=== PATIENT | female | born 1985 | race Caucasian/White ===

== ENCOUNTER 2017-02-13 20:07 | Inpatient (IN) | payer OTHER, MEDICAID ==
[~2017-02-13] VITALS: Ht 167.6 cm; Wt 58.8 kg
--- NOTE | 2017-02-13 20:34 | PD ---
HPI Chief Complaint: Psychiatric Symptoms Time Seen by Provider: 20:28 Travel History International Travel<30 days: No Contact w/Intl Traveler<30days: No Traveled to known affect area: No History of Present Illness HPI 31-year-old female is here as a transfer from [facility]. Patient was medically cleared by Dr. Weston and sent here to be evaluated by the psych screener and the psychiatrist. Patient allegedly had a nontoxic overdose. The patient has no new complaints other than being hungry. PFSH Past Medical History Medical History: Denies Significant Hx Tetanus Vaccination: < 5 Years ?: Not Past Surgical History Surgical History: No Previous Surgery Social History Alcohol Use: No Tobacco Use: No Substance Use: No Allergies-Medications (Allergen,Severity, Reaction): Coded Allergies: morphine (Verified Allergy, Intermediate, Nausea/Vomiting, 02/13/17) Reported Meds & Prescriptions Reported Meds & Active Scripts Active No Active Prescriptions or Reported Medications Review of Systems General / Constitutional: No: Fever Eyes: No: Visual changes HENT: No: Headaches Cardiovascular: No: Chest Pain or Discomfort Respiratory: No: Shortness of Breath Gastrointestinal: No: Abdominal Pain Genitourinary: No: Dysuria Musculoskeletal: No: Pain Skin: No Rash Neurologic: No: Weakness Psychiatric: Positive: Depression, Suicidal Ideations, No: Homicidal Ideation Endocrine: No: Polydipsia Hematologic/Lymphatic: No: Easy Bruising Physical Exam Narrative GENERAL: This is a well-nourished, well-developed patient, in no apparent distress. SKIN: No rashes, ecchymoses or lesions. Warm and dry. HEAD: Atraumatic. Normocephalic. EYES: PERRL, EOMI, no discharge or injection. No scleral icterus. EARS: Clear NOSE: Nasal turbinates appear normal. THROAT: Mucosa pink and moist. Airway patent. NECK: Trachea midline. supple, moves head freely. LUNGS: Clear to auscultation. CV: Regular in rhythm. ABDOMEN: Soft nontender. EXT: No clubbing cyanosis or edema. MDM Medical Decision Making Medical Screen Exam Complete: Yes Emergency Medical Condition: Yes Medical Record Reviewed: Yes Differential Diagnosis MDM: High Differential diagnoses: Schizophrenia, schizoaffective disorder, bipolar, anxiety, depression, adjustment reaction, mood disorder NOS, ODD, depressive disorder NOS, dementia, dementia with agitation, psychosis NOS, substance induced mood disorder, DMDD, Asperger syndrome, infection,electrolyte abnormality, malingering. Narrative Course Mental health screening discussed with the patient. Psychiatric screen ordered. The patient has been medically cleared earlier this afternoon by Dr. Weston. This is medical clearance for psychiatric admission Diagnosis Primary Impression: Medical clearance for psychiatric admission Scripts No Active Prescriptions or Reported Meds Condition: Stable Wes Owens Feb 13, 2017 20:34
[2017-02-13 23:27] VITALS: BP 93/50; PULSE 57; RESP 17; TEMP 98.8; O2SAT 99
[2017-02-14 03:39] VITALS: BP 97/60; PULSE 54; RESP 17; TEMP 98.6; O2SAT 98
[2017-02-14 09:41] VITALS: BP 136/58; PULSE 74; RESP 16; TEMP 98.3; O2SAT 100
[2017-02-14] MEDS ORDERED: LORazepam 2 MG/ML VIAL ONE (12:36)
[2017-02-14] MEDS ORDERED: diphenhydrAMINE HCL 50 MG/ML VIAL ONE (12:36)
--- NOTE | 2017-02-14 12:37 | PD ---
History of Present Illness Chief Complaint: Psychiatric Symptoms Time Seen by Provider: 12:00 Travel History International Travel<30 Days: No Contact w/Intl Traveler<30days: No Known affected area: No Legal Status Legal Status: Carlin Act Carlin Act Signed By: Janis Lombardo History of Present Illness: Patient under Carlin act for suicidal behavior. She is on the [facility] wait list. She is highly agitated at this point, attempted to pull the shower curtain down and strangle herself. Being given Geodon, Benadryl and Ativan intramuscularly and locked restraints for the time being until she can calm down. PFSH Past Medical History Medical History: Denies Significant Hx Tetanus Vaccination: < 5 Years ?: Not Past Surgical History Surgical History: No Previous Surgery Psychiatric History Psychiatric History Hx Psychiatric Treatment: THIS WAS UNCLEAR. SAYS SHE HAS SEEN 3 PSYCHIATRISTS, ONE IN [place], THIS MONTH. DENIES HAVING MENTAL ILLNESS. History of Inpatient Treatment: No Guns or firearms in home: No Social History Hx Alcohol Use: No Hx Tobacco Use: No Hx Substance Use: No Hx of Substance Use Treatment: No Allergies-Medications (Allergen,Severity, Reaction): Coded Allergies: morphine (Verified Allergy, Intermediate, Nausea/Vomiting, 02/13/17) diphenhydramine (Verified Allergy, Unknown, 02/14/17) Per pt. Reported Meds & Prescriptions Reported Meds & Active Scripts Active No Active Prescriptions or Reported Medications Review of Systems ROS Limitations: Clinical Condition Except as stated in HPI: all other systems reviewed are Neg Mental Status Examination Appearance: Appropriate, Disheveled Consciousness: Alert Orientation: Person Motor Activity: Normal gait Speech: Rapid Language: Other Fund of Knowledge: Inadequate Attention and Concentration: Easily Distracted Memory: Impaired Mood: Oppositional Affect: Labile Thought Process & Associations: Loose associations Thought Content: Bizarre thinking, Delusional Hallucination Type: None Delusion Type: Bizarre, Paranoid Suicidal Ideation: No Suicidal Plan: No Suicidal Intention: No Homicidal Ideation: No Homicidal Plan: No Homicidal Intention: No Insight: Poor Judgment: Poor MDM Medical Decision Making Medical Record Reviewed: Yes Assessment/Plan Plan to admit patient to psychiatry when medically and behaviorally stable. Orders Orders Psych Screen (02/13/17 20:37) Diet Regular Basic (02/13/17 Dinner) Diet Regular Basic (02/14/17 Breakfast) Restraints Violent (02/14/17 12:34) Ziprasidone Inj (Geodon Inj) (02/14/17 12:45) Diphenhydramine Inj (Benadryl Inj) (02/14/17 12:45) Lorazepam Inj (Ativan Inj) (02/14/17 12:45) Results Vital Signs Date Time Temp Pulse Resp B/P (MAP) Pulse Ox O2 Delivery O2 Flow Rate FiO2 02/14/17 09:41 98.3 74 16 136/58 (84) 100 02/14/17 03:39 98.6 54 17 97/60 (72) 98 02/13/17 23:27 98.8 57 17 93/50 (64) 99 Room Air Diagnosis Primary Impression: Brief psychotic disorder Prescriptions No Active Prescriptions or Reported Meds Condition: Stable Dario Topete MD Feb 14, 2017 12:37
[2017-02-14] MEDS ORDERED: diphenhydrAMINE HCL 50 MG/ML VIAL IM ONE (12:45)
[2017-02-14] MEDS ORDERED: ZIPRASIDONE MESYLATE 20 MG VIAL IM ONE (12:45)
[2017-02-14] MEDS ORDERED: LORazepam 2 MG/ML VIAL IM ONE (12:45)
[2017-02-14] MEDS ORDERED: LORazepam 0.5 MG TAB PO PRN (21:15)
[2017-02-14] MEDS ORDERED: LORazepam 2 MG/ML VIAL IM PRN ×2 (21:15)
[2017-02-14] MEDS: REMOVE OLD PATCH T-DERMAL SCH (21:19)
[2017-02-14 22:10] VITALS: BP 109/54; PULSE 110; RESP 16; TEMP 98.7; O2SAT 98
[2017-02-15 05:48] VITALS: BP 119/57; PULSE 82; RESP 18; TEMP 98.3; O2SAT 98
[2017-02-15 07:57] LABS: BICARBONATE 30.3 MEQ/L (21.0-32.0); CALCIUM 8.7 MG/DL (8.5-10.1); CHLORIDE 109 MEQ/L (98-107); CHOLESTEROL 119 MG/DL (120-200); CREATININE 0.86 MG/DL (0.50-1.00); GLOMERULAR FILTRATION RATE 76 ML/MIN (>89); GLUCOSE,RANDOM 102 MG/DL (74-106); SODIUM (NA) 144 MEQ/L (136-145); TRIGLYCERIDES 66 MG/DL (42-150)
[2017-02-15 08:05] LABS: BLOOD UREA NITROGEN 14 MG/DL (7-18); CHOLESTEROL/ HDL RATIO 2.62 RATIO; HDL CHOLESTEROL 45.3 MG/DL (40.0-60.0); LDL CHOLESTEROL 61 MG/DL (0-99)
[2017-02-15] MEDS: REMOVE OLD PATCH T-DERMAL SCH (08:45)
[2017-02-15] MEDS: NICOTINE 21 MG/24 HR PATCH T-DERMAL SCH (08:45)
[2017-02-15] MEDS: OLANZapine 2.5 MG TAB PO SCH ×2 (10:15→21:00)
[2017-02-15] MEDS: FLUoxetine HCL 10 MG CAP PO SCH (10:15)
[2017-02-15] MEDS: MAGNESIUM HYDROXIDE SUSP 30 ML CUP PO PRN (10:39)
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
--- NOTE | 2017-02-15 14:01 | PD.CONS ---
HPI Service [facility] Hospitalists Consult Requested By Primary Care Physician Unknown Diagnoses: History of Present Illness Mrs. Sears is a 31 year old female. She is admitted secondary to suicide attempt. She reports that her suicidality came in secondary to weight loss. He feels horrible about her body and fears that it won't return back to normal. As an outpatient she was encouraged to use "Cardispan" the past 3 weeks. She was told it was going to help her get into better shape and give her energy to work out build muscles. She lost 20 pounds and most of this was secondary to chronic abdominal pain and nausea and she lost her hair. At this point she feels that she lost some of her favorite assets including her breasts and bottom. This is making her feel horrible about her body. He wants to gain weight back. I discussed history, Anorexia is not suspected as a cause of her weight loss. Anorexia workup does not need be performed. She has a BMP which shows a lack of significant electrolyte disturbance. The CMP has been ordered to evaluate her liver functions. She's been advised not to use Cardispan again. She may have a degree of body dysmorphic syndrome, but the acute change in her body may also cause an acute emotional reaction. However, the suicide attempt does not to be considered a normal spots. Review of Systems Constitutional: COMPLAINS OF: Weight loss, DENIES: Fever, Night Sweats Eyes: DENIES: Blurred vision, Diplopia, Eye inflammation, Eye pain Ears, nose, mouth, throat: DENIES: Tinnitus, Hearing loss, Vertigo Respiratory: DENIES: Apneas, Cough, Wheezing, Shortness of breath Cardiovascular: DENIES: Chest pain, Palpitations, Syncope Gastrointestinal: COMPLAINS OF: Nausea, DENIES: Abdominal pain, Black stools, Bloody stools, Constipation, Diarrhea Musculoskeletal: DENIES: Joint pain, Muscle aches, Stiffness, Joint Swelling Integumentary: DENIES: Abnormal pigmentation, Pruritus, Rash, Nail changes Hematologic/lymphatic: DENIES: Bruising, Lymphadenopathy Immunologic/allergic: DENIES: Eczema, Urticaria Neurologic: DENIES: Abnormal gait, Headache, Paresthesias Psychiatric: DENIES: Anxiety, Confusion, Hallucinations Past Family Social History Allergies: Coded Allergies: morphine (Verified Allergy, Intermediate, Nausea/Vomiting, 02/13/17) diphenhydramine (Verified Allergy, Unknown, 02/14/17) Per pt. Past Medical History None reported by patient Past Surgical History None reported by patient Reported Medications None reported by patient Reported Meds & Active Scripts Active No Active Prescriptions or Reported Medications Family History None reported by patient Social History None reported by patient Physical Exam Vital Signs Vital Signs Date Time Temp Pulse Resp B/P (MAP) Pulse Ox O2 Delivery O2 Flow Rate FiO2 02/15/17 05:48 98.3 82 18 119/57 (77) 98 02/14/17 22:19 02/14/17 22:10 98.7 110 16 109/54 (72) 98 Physical Exam GENERAL: NAD, A&Ox3 HEAD: Normocephalic. NECK: Supple, trachea midline. No lymphadenopathy. EYES: No scleral icterus. No injection or drainage. CARDIOVASCULAR: Regular rate and rhythm without murmurs, gallops, or rubs. RESPIRATORY: Breath sounds equal bilaterally. No accessory muscle use. GASTROINTESTINAL: Abdomen soft, non-tender, nondistended. MUSCULOSKELETAL: No cyanosis, or edema. SKIN: Warm and dry. NEURO: No focal neurological deficitis. Laboratory Laboratory Tests Test 02/15/17 07:19 Blood Urea Nitrogen 14 Creatinine 0.86 Random Glucose 102 Calcium Level 8.7 Sodium Level 144 Potassium Level 4.2 Chloride Level 109 Carbon Dioxide Level 30.3 Anion Gap 5 Estimat Glomerular Filtration Rate 76 Triglycerides Level 66 Cholesterol Level 119 LDL Cholesterol 61 HDL Cholesterol 45.3 Cholesterol/HDL Ratio 2.62 Result Diagram: 02/15/17 0719 Assessment and Plan Problem List: (1) Body dysmorphic disorder ICD Code: F45.22 - Body dysmorphic disorder Assessment and Plan 31-year-old female admitted secondary to suicide attempt Suicide attempt Management per psychiatry Body dysmorphic disorder Unintentional weight loss (20 pounds) Patient advised to not use "Cardispan" as a supplement again She is reassured that avoidance of this treatment should cause her body weight to trend back towards normal I do not feel the anorexia is a component of her current state Obtain CMP in the morning to evaluate liver CMP shows no liver involvement, no further medical testing or management will be needed DVT prophylaxis Patient is ambulatory Sigifredo Sanchez MD Feb 15, 2017 14:01
[2017-02-15] MEDS ORDERED: OLANZapine IM 10 MG VIAL IM ONE (14:57)
[2017-02-15] MEDS ORDERED: OLANZapine IM 10 MG VIAL IM STA (15:06)
[2017-02-15] MEDS ORDERED: LORazepam 2 MG/ML VIAL IM STA (15:32)
[2017-02-15 16:38] LABS: HEMOGLOBIN A1C 5.4 % (4.3-6.0)
[2017-02-16 05:40] VITALS: BP 93/51; PULSE 68; RESP 16; TEMP 98.3; O2SAT 99
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
[2017-02-16] MEDS: OLANZapine 2.5 MG TAB PO SCH ×2 (09:00→20:38)
[2017-02-16] MEDS: OLANZapine IM 10 MG VIAL IM SCH ×2 (09:00→20:39)
[2017-02-16] MEDS: NICOTINE 21 MG/24 HR PATCH T-DERMAL SCH (09:00)
[2017-02-16] MEDS: REMOVE OLD PATCH T-DERMAL SCH (09:00)
[2017-02-16] MEDS: FLUoxetine HCL 10 MG CAP PO SCH (09:00)
[2017-02-16 09:37] LABS: ALBUMIN 3.6 GM/DL (3.4-5.0); AST (GOT) 22 U/L (15-37); BICARBONATE 23.3 MEQ/L (21.0-32.0); BLOOD UREA NITROGEN 15 MG/DL (7-18); CALCIUM 8.5 MG/DL (8.5-10.1); CHLORIDE 113 MEQ/L (98-107); CREATININE 0.83 MG/DL (0.50-1.00); GLOMERULAR FILTRATION RATE 80 ML/MIN (>89); GLUCOSE,RANDOM 128 MG/DL (74-106); SODIUM (NA) 146 MEQ/L (136-145)
[2017-02-16 09:41] LABS: ALKALINE PHOSPHATASE 55 U/L (45-117); ALT (GPT) 20 U/L (10-53); TOTAL BILIRUBIN ADULT 0.1 MG/DL (0.2-1.0); TOTAL PROTEIN 7.1 GM/DL (6.4-8.2)
[2017-02-16] MEDS ORDERED: OLANZapine IM 10 MG VIAL IM ONE (10:15)
--- NOTE | 2017-02-16 15:30 | HHI.PR ---
Subjective Remarks Follow-up for weight loss Tach is at the bedside during the interview. Patient complaints. Denied any pain. Denied any nausea/vomiting. Per patient's tech patient was aggressive today which is why patient is room at the moment. Objective Vitals Vital Signs Date Time Temp Pulse Resp B/P (MAP) Pulse Ox O2 Delivery O2 Flow Rate FiO2 02/16/17 05:40 98.3 68 16 93/51 (65) 99 Result Diagram: 02/16/17 0900 Objective Remarks GENERAL: in NAD CARDIOVASCULAR: Regular rate and rhythm without murmurs, gallops, or rubs. RESPIRATORY: Breath sounds equal bilaterally. No accessory muscle use. GASTROINTESTINAL: Abdomen soft, non-tender, nondistended. MUSCULOSKELETAL: No cyanosis, or edema. Medications and IVs Current Medications Ziprasidone (Geodon Inj) 20 mg ONCE ONCE IM Last administered on 02/14/17at 12: 45; Start 02/14/17 at 12:45; Stop 02/14/17 at 12:46; Status DC Diphenhydramine HCl (Benadryl Inj) 50 mg ONCE ONCE IM ; Start 02/14/17 at 12:45 ; Stop 02/14/17 at 12:46; Status DC Lorazepam (Ativan Inj) 2 mg ONCE ONCE IM Last administered on 02/14/17at 12:45; Start 02/14/17 at 12:45; Stop 02/14/17 at 12:46; Status DC Lorazepam (Ativan Inj) 2 mg STK-MED ONCE .ROUTE ; Start 02/14/17 at 12:36; Stop 02/14/17 at 12:37; Status DC Diphenhydramine HCl (Benadryl Inj) 50 mg STK-MED ONCE .ROUTE ; Start 02/14/17 at 12:36; Stop 02/14/17 at 12:37; Status DC Lorazepam (Ativan) 1 mg Q6H PRN PO MODERATE TO SEVERE ANXIETY; Start 02/14/17 at 21:15 Lorazepam (Ativan Inj) 1 mg Q6H PRN IM MODERATE TO SEVERE ANXIETY; Start at 21:15 Lorazepam (Ativan) 0.5 mg Q12H PRN PO MODERATE TO SEVERE ANXIETY; Start at 21:15 Lorazepam (Ativan Inj) 0.5 mg Q12H PRN IM MODERATE TO SEVERE ANXIETY; Start 02/14/17 at 21:15 Acetaminophen (Tylenol) 650 mg Q4H PRN PO Pain 1-5 or Temp >101F; Start at 21:15 Magnesium Hydroxide (Milk Of Magnesia Liq) 30 ml DAILY PRN PO CONSTIPATION; Start 02/14/17 at 21:15 Al Hydrox/Mg Hydrox/Simethicone (Mag-Al Plus Susp Liq) 30 ml Q6H PRN PO DYSPEPSIA; Start 02/14/17 at 21:15 Nicotine (Habitrol 21 Mg Patch.24 Hr) 1 patch DAILY T-DERMAL ; Start 02/15/17 at 09:00 Miscellaneous Information 1 DAILY T-DERMAL ; Start 02/14/17 at 21:19 Fluoxetine HCl (PROzac) 10 mg DAILY PO ; Start 02/15/17 at 10:15 Olanzapine (ZyPREXA) 2.5 mg Q12HR PO Last administered on 02/16/17at 09:00; Start 02/15/17 at 10:15 Olanzapine (ZyPREXA INJ) 10 mg STK-MED ONCE IM ; Start 02/15/17 at 14:57; Stop at 14:58; Status DC Olanzapine (ZyPREXA INJ) 10 mg ONCE STAT IM Last administered on 02/15/17at 15: 06; Start 02/15/17 at 15:06; Stop 02/15/17 at 15:07; Status DC Lorazepam (Ativan Inj) 2 mg ONCE STAT IM ; Start 02/15/17 at 15:32; Stop at 15:33; Status DC Olanzapine (ZyPREXA INJ) 2.5 mg Q12H IM ; Start 02/16/17 at 09:00 Olanzapine (ZyPREXA INJ) 7.5 mg ONCE ONCE IM Last administered on 02/16/17at 10: 15; Start 02/16/17 at 10:15; Stop 02/16/17 at 10:16; Status DC A/P Problem List: (1) Body dysmorphic disorder ICD Code: F45.22 - Body dysmorphic disorder Assessment and Plan 31-year-old female admitted secondary to suicide attempt Suicide attempt Management per psychiatry Body dysmorphic disorder Unintentional weight loss (20 pounds) Patient advised to not use "Cardispan" as a supplement again She is reassured that avoidance of this treatment should cause her body weight to trend back towards normal Labs reviewed relatively normal. Management per psychiatrist. DVT prophylaxis Patient is ambulatory Discharge Planning At the moment there is no active medical issues to be treated. Body dysmorphic to be treated by psychiatrist. Otherwise since there is no active medical issue will/off. Can call when necessary for any concerns. Frances Correia MD Feb 16, 2017 15:30
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
[2017-02-16 17:13] VITALS: BP 106/55; PULSE 108; RESP 18; TEMP 98.6; O2SAT 99
[2017-02-16] MEDS: MAGNESIUM HYDROXIDE SUSP 30 ML CUP PO PRN (17:17)
[2017-02-16] MEDS: ALUMINUM/MAGNESIUM/SIMETH 30 ML CUP PO PRN (17:17)
[2017-02-17 05:37] VITALS: BP 107/63; PULSE 74; RESP 18; TEMP 97.7; O2SAT 99
[2017-02-17] MEDS: REMOVE OLD PATCH T-DERMAL SCH (07:50)
[2017-02-17] MEDS: OLANZapine IM 10 MG VIAL IM SCH (07:50)
[2017-02-17] MEDS: FLUoxetine HCL 10 MG CAP PO SCH (07:50)
[2017-02-17] MEDS: OLANZapine 2.5 MG TAB PO SCH ×2 (07:50→21:00)
[2017-02-17] MEDS: NICOTINE 21 MG/24 HR PATCH T-DERMAL SCH (08:01)
[2017-02-17] MEDS ORDERED: BENZTROPINE MESYLATE 2 MG TAB PO ONE (08:30)
[2017-02-17] MEDS: DOCUSATE SODIUM 50 MG/SENNA 8.6 MG TAB PO PRN (09:12)
[2017-02-17] MEDS ORDERED: LORazepam 2 MG TAB PO ONE (10:45)
--- NOTE | 2017-02-17 12:39 | HHI.PYPN ---
Subjective Remarks The patient was seen today for psychiatric reevaluation. Vital signs reviewed. Case discussed with nurse in charge. On psychiatric evaluation the patient is found in her bed, she is calm, cooperative, a little bit irritable. She complains of pain in her neck "I feel like my neck is lack". She reports improved mood, good sleep last night, good appetite. She is oriented 3, no agitation or aggressive behavior reported today. But, just today patient had to be medicated with ETO in order to calm her down because she became aggressive with the staff and the spit on one of the nurses accusing her of calling her ugly and nasty. The patient has been taking her medications since yesterday. Today I note that she is more able to sustain a logical conversation , but still very paranoid, making accusations toward her sister and toward staff , a little bit disorganized, and changing his stories over and over. She has been getting in the unit, no purging behavior reported. Review of Systems Psychiatric: COMPLAINS OF: Depression Except as stated in HPI: all other systems reviewed are Neg Mental Status Examination Appearance: Disheveled Consciousness: Alert Orientation: x4 Motor Activity: Normal gait Speech: Other (loud at times) Language: Adequate Fund of Knowledge: Adequate Attention and Concentration: Adequate Memory: Unremarkable Mood: Irritable Affect: Irritable, Sad Thought Process & Associations: Goal directed, Circumstantial Thought Content: Bizarre thinking, Delusional, Obsessions Hallucination Type: None Delusion Type: Paranoid Suicidal Ideation: No Suicidal Plan: No Suicidal Intention: No Homicidal Ideation: No Homicidal Plan: No Homicidal Intention: No Insight: Poor Judgment: Poor Results Vitals/IOs Vital Signs Date Time Temp Pulse Resp B/P (MAP) Pulse Ox O2 Delivery O2 Flow Rate FiO2 02/17/17 05:37 97.7 74 18 107/63 (78) 99 02/13/17 23:27 Room Air Assessment & Plan Problem List: (1) Major depressive disorder, recurrent, severe with psychotic features ICD Codes: F33.3 - Major depressive disorder, recurrent, severe with psychotic symptoms Assessment & Plan: Patient continues to be acutely psychotic, we'll increase olanzapine to 5 mg twice a day. Will give benztropine 2 mg by mouth now for torticollis. (2) Eating disorder, unspecified ICD Codes: F50.9 - Eating disorder, unspecified Assessment & Plan Estimated LOS: days Justification for Cont. Inpt. Patient is acutely psychotic, she needs to continue psychiatric hospitalization for stabilization. Woodrow Cottrell MD Feb 17, 2017 12:39
[2017-02-17] MEDS ORDERED: LORazepam 2 MG/ML VIAL IM ONE (14:30)
[2017-02-17] MEDS ORDERED: OLANZapine IM 10 MG VIAL IM ONE ×2 (14:58→15:15)
[2017-02-17] MEDS ORDERED: OLANZapine IM 10 MG VIAL IM PRN (21:00)
[2017-02-17] MEDS: ALUMINUM/MAGNESIUM/SIMETH 30 ML CUP PO PRN ×2 (23:30→23:32)
[2017-02-18 06:06] VITALS: BP 107/57; PULSE 96; RESP 16; TEMP 99.4; O2SAT 99
--- NOTE | 2017-02-18 08:57 | HHI.PYPN ---
Subjective Remarks Patient was seen today for psychiatric reevaluation. Case was widely discussed with nurse in charge. Documentation reviewed. On psychiatric evaluation patient is irritable, oppositional, upset for being admitted and is stating that she hasn't got her cereal this morning and other specific food that she has been asking for. She also reports that she has been bleeding by her rectum and having a lot of pain in the rectal area. Today her neck pain is better. Patient says that yesterday she was secluded and injected with medications for no reason, he says that she has been just talking by phone with her sister and she was upset because "there are cameras what every ago in this place recording my figure and also voice". Patient also reports that the staff members of the unit has been talking against her and calling her ugly "over and over". Yesterday patient had to be medicated with ETO twice due to aggressive behavior towards staff and because the hospital operators called to the unit stating that the patient has been calling every 5 minutes requesting assistance. As per nursing report the patient tried to reach one of the cameras in the unit and destroy it. As per report, the patient has been extremely needed and intrusive coming to the nurse repeatedly with different complaints and questions. Review of Systems Gastrointestinal: COMPLAINS OF: Bloody stools, Constipation Psychiatric: COMPLAINS OF: Mood changes, Agitation, Delusions Other Patient reports rectal pain Mental Status Examination Appearance: Appropriate, Disheveled Consciousness: Alert Orientation: Person Motor Activity: Normal gait Speech: Rapid Language: Other Fund of Knowledge: Inadequate Attention and Concentration: Easily Distracted Memory: Impaired Mood: Oppositional Affect: Labile Thought Process & Associations: Loose associations Thought Content: Bizarre thinking, Delusional Hallucination Type: None Delusion Type: Bizarre, Paranoid Suicidal Ideation: No Suicidal Plan: No Suicidal Intention: No Homicidal Ideation: No Homicidal Plan: No Homicidal Intention: No Insight: Poor Judgment: Poor Results Vitals/IOs Vital Signs Date Time Temp Pulse Resp B/P (MAP) Pulse Ox O2 Delivery O2 Flow Rate FiO2 02/18/17 06:06 99.4 96 16 107/57 (74) 99 Assessment & Plan Problem List: (1) Eating disorder, unspecified ICD Codes: F50.9 - Eating disorder, unspecified (2) Unspecified psychosis ICD Codes: F29 - Unspecified psychosis not due to a substance or known physiological condition Assessment & Plan: Patient continues to show severe behavioral dysregulation in the unit, the patient is extremely needed, with increased sensitivity to rejection and frustration, accusatory, manipulative, which might suggest an underlying cluster B personality pathology, most probably borderline personality disorder. She also continues to be paranoid, disorganized, agitated and very aggressive. Patient also continues to be focused/excessive with diets and her figure. Will increase Prozac to 20 mg for mood/obsessive thoughts. Continue close monitoring of behavior and mood. We will reconsult medicine for rectal bleeding and pain. Will order hydrocortisone cream for rectal pain. (3) Borderline personality disorder ICD Codes: F60.3 - Borderline personality disorder Assessment & Plan Estimated LOS: days Justification for Cont. Inpt. Patient is acutely psychotic, she needs to continue psychiatric hospitalization for stabilization. Woodrow Cottrell MD Feb 18, 2017 08:57
[2017-02-18] MEDS: REMOVE OLD PATCH T-DERMAL SCH (09:00)
[2017-02-18] MEDS ORDERED: HYDROCORTISONE 1% CREAM 30 GM TOPICAL SCH (09:00)
[2017-02-18] MEDS: NICOTINE 21 MG/24 HR PATCH T-DERMAL SCH (09:00)
[2017-02-18] MEDS: OLANZapine 2.5 MG TAB PO SCH ×2 (10:24→20:46)
[2017-02-18] MEDS: FLUoxetine HCL 20 MG CAP PO SCH (10:24)
[2017-02-18 12:29] LABS: AUTOMATED NEUTROPHIL # 6.5 TH/MM3 (1.8-7.7); BASOPHIL % 0.3 % (0.0-2.0); EOSINOPHIL # 0.1 TH/MM3 (0-0.4); EOSINOPHIL % 0.7 % (0.0-4.0); HEMATOCRIT 35.8 % (35.0-46.0); HEMOGLOBIN 11.8 GM/DL (11.6-15.3); LYMPH % 19.2 % (9.0-44.0); LYMPHOCYTE # 1.7 TH/MM3 (1.0-4.8); MEAN CELL VOLUME 88.6 FL (80.0-100.0); MEAN CORPUSCULAR HEMOGLOBIN 29.1 PG (27.0-34.0); MEAN CORPUSCULAR HGB CONC 32.8 % (32.0-36.0); MEAN PLATELET VOLUME 8.5 FL (7.0-11.0); MONO % 7.1 % (0.0-8.0); MONOCYTE # 0.6 TH/MM3 (0-0.9); NEUT % 72.7 % (16.0-70.0); PLATELET COUNT 233 TH/MM3 (150-450); RED BLOOD COUNT 4.04 MIL/MM3 (4.00-5.30); RED CELL DISTRIBUTION WIDTH 16.2 % (11.6-17.2); WHITE BLOOD COUNT 8.9 TH/MM3 (4.0-11.0)
--- NOTE | 2017-02-18 16:57 | HHI.PR ---
Subjective Remarks Follow up on 31-year-old female Carlin acted due to suicide attempt with complaints of recta pain and bleeding. Patient seen and examined in the presence of RADHA Fernández. She reports that she is here wrong fully in that when she leaves she is to be looking into obtaining a tombstone polisher. Patient reports that she was just feeling sad and a little depressed after recently finding out her ex-boyfriend will be soon. She also goes on to tell me that she is very upset because yesterday she got thrown around in the room by the staff members. Patient states that she has a long history of constipation since she was a child , has had to take MiraLAX and Dulcolax to have a BM. She repots that ever since she has arrived to hospital she is having blood in the stool, large amounts, then repots that the last time she then goes on to report her BM was 13 days ago. She is also complaining of a painful abdominal mass that she first noticed 3 weeks ago. Patient reports it is very tender and thinks he might be related to her recent weight loss with the use of "Cardispan" supplement. Patient also reports that at home her abdominal pain was so severe to the point that she was vomiting and at times vomiting blood. At the moment she denies any nausea, vomiting, fever, chills. She reports eating and drinking without any issues. Objective Vitals Vital Signs Date Time Temp Pulse Resp B/P (MAP) Pulse Ox O2 Delivery O2 Flow Rate FiO2 02/18/17 06:06 99.4 96 16 107/57 (18) 99 Result Diagram: 02/18/17 1145 02/16/17 0900 Objective Remarks GENERAL: This is a well-nourished, well-developed patient, in no apparent distress. SKIN: Cool and dry. HEAD: Atraumatic. Normocephalic. Right side soft mass behind ear, tender, appear to be post auricular lymph node. EYES: Pupils equal round and reactive. No scleral icterus. No injection or drainage. ENT: Nose without bleeding, purulent drainage. Airway patent. NECK: Trachea midline. CARDIOVASCULAR: Regular rate and rhythm without murmurs, gallops, or rubs. RESPIRATORY: Clear to auscultation. Breath sounds equal bilaterally. No wheezes , rales, or rhonchi. GASTROINTESTINAL: Abdomen soft, tenderness with light palpation of mid- abdominal mass, mass is mobile, active bowel sounds in all quadrants, nondistended. Rectal edam done with RADHA Fernández in room, visible external hemorrhoids, very tender unable to preform internal exam, no lesions, blood or open skin noted. A/P Problem List: (1) Body dysmorphic disorder ICD Code: F45.22 - Body dysmorphic disorder Assessment and Plan 31-year-old female admitted to inpatient psychiatry due to suicide attempt. Patient with complaints of constipation, rectal bleeding, and abdominal mass. Constipation, chronic - Patient reports this is chronic and ongoing - States that her last bowel movement was 13 days ago, ? As she reports blood in stool. Active bowel sounds, eating with no issues. - Stool softeners in place will also add MiraLAX daily - Also contributing to hemorrhoids and discomfort Rectal bleeding/ Hemorrhoids - We will add hydrocortisone suppositories, along with Tucks pads for relief. - H&H checked to day stable, hemoglobin 11.8, hematocrit 35.8, vital signs stable - Continue supportive care Abdominal mass with pain - Reports abdominal mass for 3 weeks after episode of supplement intake with rapid weight loss - Consider US however not sure she will tolerate as she is very tender to palpation - Will order CT of abd/pelvis, follow results - ?hernia DVT prophylaxis-ambulating Elsie Barnhart Feb 18, 2017 16:57
[2017-02-18] MEDS ORDERED: WITCH HAZEL 50%/GLYCERIN 12.5% 40 PAD JAR TOPICAL PRN (17:30)
[2017-02-18] MEDS: HYDROCORTISONE ACETATE 25 MG SUPP RECTAL SCH (18:00)
[2017-02-18] MEDS ORDERED: DIATRIZOATE MEGLUM/DIATRIZOATE SOD 9 ML CUP PO ONE (18:00)
[2017-02-18 18:08] VITALS: BP 115/79; PULSE 105; RESP 17; TEMP 98.1; O2SAT 99
[2017-02-18] MEDS: ACETAMINOPHEN 325 MG TAB PO PRN (18:17)
--- NOTE | 2017-02-18 21:30 | RADRPT ---
EXAM DATE/TIME: 02/18/2017 20:55 [facility] COMPARISON: No previous studies available for comparison. INDICATIONS : Abdominal pain X 3 weeks. ORAL CONTRAST: Prescribed oral contrast ingested. RADIATION DOSE: 7.63 CTDIvol (mGy) MEDICAL HISTORY : None SURGICAL HISTORY : None. ENCOUNTER: Initial ACUITY: 3 weeks PAIN SCALE: 5/10 LOCATION: abdomen TECHNIQUE: Volumetric scanning of the abdomen and pelvis was performed. Using automated exposure control and ad justment of the mA and/or kV according to patient size, radiation dose was kept as low as reasonably achievable to obtain optimal diagnostic quality images. DICOM format image data is available electro nically for review and comparison. FINDINGS: Lung bases are clear. Small cyst right lobe liver. No acute findings in the liver, spleen, adrenals, kidneys or pancreas. There is mild constipation. Trace free fluid in the pelvis. Mild anasarca. No free air. CONCLUSION: Mild constipation. Mild anasarca. Trace free fluid in the pelvis. No obstruction or free air. Wes Prabhakar MD on February 18, 2017 at 21:25 Board Certified Radiologist. This report was verified electronically.
[2017-02-19 05:51] VITALS: BP 132/71; PULSE 97; RESP 16; TEMP 97.6; O2SAT 98
[2017-02-19] MEDS: FLUoxetine HCL 20 MG CAP PO SCH (08:19)
[2017-02-19] MEDS: OLANZapine 2.5 MG TAB PO SCH ×2 (08:19→20:31)
[2017-02-19] MEDS: POLYETHYLENE GLYCOL 17 GM PKG PO SCH (08:20)
[2017-02-19] MEDS: HYDROCORTISONE ACETATE 25 MG SUPP RECTAL SCH ×4 (08:20→18:36)
[2017-02-19] MEDS: ACETAMINOPHEN 325 MG TAB PO PRN ×2 (08:22→18:51)
[2017-02-19] MEDS: REMOVE OLD PATCH T-DERMAL SCH (08:35)
[2017-02-19] MEDS: NICOTINE 21 MG/24 HR PATCH T-DERMAL SCH (08:35)
[2017-02-19 12:52] LABS: AUTOMATED NEUTROPHIL # 8.6 TH/MM3 (1.8-7.7); BASOPHIL % 0.3 % (0.0-2.0); EOSINOPHIL # 0.1 TH/MM3 (0-0.4); EOSINOPHIL % 1.2 % (0.0-4.0); HEMATOCRIT 36.5 % (35.0-46.0); HEMOGLOBIN 12.2 GM/DL (11.6-15.3); LYMPH % 6.8 % (9.0-44.0); LYMPHOCYTE # 0.7 TH/MM3 (1.0-4.8); MEAN CELL VOLUME 87.6 FL (80.0-100.0); MEAN CORPUSCULAR HEMOGLOBIN 29.4 PG (27.0-34.0); MEAN CORPUSCULAR HGB CONC 33.5 % (32.0-36.0); MEAN PLATELET VOLUME 8.4 FL (7.0-11.0); MONO % 6.7 % (0.0-8.0); MONOCYTE # 0.7 TH/MM3 (0-0.9); PLATELET COUNT 238 TH/MM3 (150-450); RED BLOOD COUNT 4.17 MIL/MM3 (4.00-5.30); RED CELL DISTRIBUTION WIDTH 16.5 % (11.6-17.2); WHITE BLOOD COUNT 10.1 TH/MM3 (4.0-11.0)
[2017-02-19 13:30] LABS: ALBUMIN 4.1 GM/DL (3.4-5.0); ALKALINE PHOSPHATASE 52 U/L (45-117); ALT (GPT) 42 U/L (10-53); AST (GOT) 38 U/L (15-37); BICARBONATE 28.1 MEQ/L (21.0-32.0); BLOOD UREA NITROGEN 14 MG/DL (7-18); CHLORIDE 104 MEQ/L (98-107); CREATININE 0.65 MG/DL (0.50-1.00); GLOMERULAR FILTRATION RATE 106 ML/MIN (>89); GLUCOSE,RANDOM 94 MG/DL (74-106); PHOSPHORUS 4.4 MG/DL (2.5-4.9); SODIUM (NA) 138 MEQ/L (136-145); TOTAL BILIRUBIN ADULT 0.3 MG/DL (0.2-1.0); TOTAL PROTEIN 7.6 GM/DL (6.4-8.2)
--- NOTE | 2017-02-19 17:46 | HHI.PYPN ---
Subjective Remarks Patient was seen and case discussed with nursing. Interview was conducted in Guyanese. I went over her history and her reason for admission. Patient says that everything is a lie and repeats this phrase repeatedly. She says she never wrote a suicide note, she never tried to strangle himself with a shower curtain and she never overdosed on medication. She also denies having been in the hospital year ago. Denies psychotic symptoms. She is perseverant on discharge. Compliant with medications Mental Status Examination Appearance: Appropriate, Disheveled Consciousness: Alert Orientation: Person Motor Activity: Normal gait Speech: Rapid Language: Other Fund of Knowledge: Inadequate Attention and Concentration: Easily Distracted Memory: Impaired Mood: Oppositional Affect: Irritable, Labile Thought Process & Associations: Disorganized Thought Content: Bizarre thinking, Delusional Hallucination Type: None Delusion Type: Bizarre, Paranoid Suicidal Ideation: No Suicidal Plan: No Suicidal Intention: No Homicidal Ideation: No Homicidal Plan: No Homicidal Intention: No Insight: Poor Judgment: Poor Results Labs Test 02/19/17 12:32 White Blood Count 10.1 TH/MM3 Red Blood Count 4.17 MIL/MM3 Hemoglobin 12.2 GM/DL Hematocrit 36.5 % Mean Corpuscular Volume 87.6 FL Mean Corpuscular Hemoglobin 29.4 PG Mean Corpuscular Hemoglobin Concent 33.5 % Red Cell Distribution Width 16.5 % Platelet Count 238 TH/MM3 Mean Platelet Volume 8.4 FL Neutrophils (%) (Auto) 85.0 % Lymphocytes (%) (Auto) 6.8 % Monocytes (%) (Auto) 6.7 % Eosinophils (%) (Auto) 1.2 % Basophils (%) (Auto) 0.3 % Neutrophils # (Auto) 8.6 TH/MM3 Lymphocytes # (Auto) 0.7 TH/MM3 Monocytes # (Auto) 0.7 TH/MM3 Eosinophils # (Auto) 0.1 TH/MM3 Basophils # (Auto) 0.0 TH/MM3 CBC Comment DIFF FINAL Differential Comment Blood Urea Nitrogen 14 MG/DL Creatinine 0.65 MG/DL Random Glucose 94 MG/DL Total Protein 7.6 GM/DL Albumin 4.1 GM/DL Calcium Level 9.0 MG/DL Phosphorus Level 4.4 MG/DL Magnesium Level 2.0 MG/DL Alkaline Phosphatase 52 U/L Aspartate Amino Transf (AST/SGOT) 38 U/L Alanine Aminotransferase (ALT/SGPT) 42 U/L Total Bilirubin 0.3 MG/DL Sodium Level 138 MEQ/L Potassium Level 4.4 MEQ/L Chloride Level 104 MEQ/L Carbon Dioxide Level 28.1 MEQ/L Anion Gap 6 MEQ/L Estimat Glomerular Filtration Rate 106 ML/MIN Vitals/IOs Vital Signs Date Time Temp Pulse Resp B/P (MAP) Pulse Ox O2 Delivery O2 Flow Rate FiO2 02/19/17 09:25 12 02/19/17 05:51 97.6 97 132/71 (91) 98 Assessment & Plan Problem List: (1) Eating disorder, unspecified ICD Codes: F50.9 - Eating disorder, unspecified (2) Unspecified psychosis ICD Codes: F29 - Unspecified psychosis not due to a substance or known physiological condition (3) Borderline personality disorder ICD Codes: F60.3 - Borderline personality disorder Assessment & Plan Continue current treatment plan Justification for Cont. Inpt. Patient would decompensate in a less restrictive setting Wali Ramos DO Feb 19, 2017 17:46
[2017-02-19 17:59] VITALS: BP 102/61; PULSE 85; RESP 18; TEMP 99.6; O2SAT 97
[2017-02-19] MEDS: LORazepam 1 MG TAB PO PRN (22:30)
[2017-02-20] MEDS: ACETAMINOPHEN 325 MG TAB PO PRN ×3 (05:46→20:45)
[2017-02-20 06:03] VITALS: BP 96/52; PULSE 84; RESP 17; TEMP 97.6; O2SAT 98
[2017-02-20] MEDS: HYDROCORTISONE ACETATE 25 MG SUPP RECTAL SCH ×3 (09:00→18:00)
[2017-02-20] MEDS: NICOTINE 21 MG/24 HR PATCH T-DERMAL SCH (09:00)
[2017-02-20] MEDS: REMOVE OLD PATCH T-DERMAL SCH (09:00)
[2017-02-20] MEDS: OLANZapine 2.5 MG TAB PO SCH ×2 (09:19→20:44)
[2017-02-20] MEDS: FLUoxetine HCL 20 MG CAP PO SCH (09:19)
[2017-02-20] MEDS: POLYETHYLENE GLYCOL 17 GM PKG PO SCH (09:19)
--- NOTE | 2017-02-20 14:49 | HHI.PYPN ---
Subjective Remarks Patient was seen and case discussed with nursing. Patient remains angry, pressure, rapid speech, very demanding fixed stare. She is internally preoccupied throughout the day calling various family members. She is adamant that everything in her history and her recent admissions is a lie. She was heard speaking on the phone and asking the other person why they are lying. I suggested a family meeting next week where some of this information can be resolved. She is very vigilant with medication and had to be coaxed into taking this morning per nursing. She has not had any disruptive behavior no ETO 's were needed Mental Status Examination Appearance: Appropriate, Disheveled Consciousness: Alert Orientation: Person Motor Activity: Normal gait Speech: Rapid Language: Other Fund of Knowledge: Inadequate Attention and Concentration: Easily Distracted Memory: Impaired Mood: Angry, Oppositional Affect: Labile Thought Process & Associations: Disorganized Thought Content: Bizarre thinking, Delusional Hallucination Type: None Delusion Type: Bizarre, Paranoid Suicidal Ideation: No Suicidal Plan: No Suicidal Intention: No Homicidal Ideation: No Homicidal Plan: No Homicidal Intention: No Insight: Poor Judgment: Poor Results Vitals/IOs Vital Signs Date Time Temp Pulse Resp B/P (MAP) Pulse Ox O2 Delivery O2 Flow Rate FiO2 02/20/17 07:15 12 02/20/17 06:03 97.6 84 96/52 (67) 98 Assessment & Plan Problem List: (1) Eating disorder, unspecified ICD Codes: F50.9 - Eating disorder, unspecified (2) Unspecified psychosis ICD Codes: F29 - Unspecified psychosis not due to a substance or known physiological condition (3) Borderline personality disorder ICD Codes: F60.3 - Borderline personality disorder Assessment & Plan Continue current treatment plan Justification for Cont. Inpt. Patient would decompensate in a less restrictive setting Wali Ramos DO Feb 20, 2017 14:49
[2017-02-20 17:22] VITALS: BP 101/62; PULSE 76; RESP 17; TEMP 97.3; O2SAT 97
[2017-02-20] MEDS: DOCUSATE SODIUM 50 MG/SENNA 8.6 MG TAB PO PRN (20:45)
[2017-02-20] MEDS: LORazepam 1 MG TAB PO PRN (21:34)
[2017-02-20 21:57] VITALS: BP 89/55; O2SAT 91
[2017-02-21] MEDS: ACETAMINOPHEN 325 MG TAB PO PRN (05:17)
[2017-02-21 05:40] VITALS: BP 101/56; PULSE 85; RESP 18; TEMP 98.1; O2SAT 99
[2017-02-21] MEDS: HYDROCORTISONE ACETATE 25 MG SUPP RECTAL SCH ×3 (09:00→17:09)
[2017-02-21] MEDS: FLUoxetine HCL 20 MG CAP PO SCH (09:00)
[2017-02-21] MEDS: NICOTINE 21 MG/24 HR PATCH T-DERMAL SCH (09:00)
[2017-02-21] MEDS: OLANZapine 2.5 MG TAB PO SCH ×2 (09:00→20:19)
[2017-02-21] MEDS: POLYETHYLENE GLYCOL 17 GM PKG PO SCH (09:00)
[2017-02-21] MEDS: REMOVE OLD PATCH T-DERMAL SCH (09:00)
--- NOTE | 2017-02-21 09:54 | HHI.PYPN ---
Subjective Remarks I have seen and examined this patient for psychiatric reevaluation. Documentation from weekend psychiatrist reviewed. Case was discussed with nurse in Charge Kin. On psychiatric evaluation today patient is found in her breakfast. Patient says that she has been eating much better here in the unit. However patient continues to be fixed in the discharge, accusing her family and her sister specifically of trying to ruin her. She also is in suing the practitioners that Carlin acted her "lying about me". She was able to elaborate about plans for the future, likely looking for a job, improving her body image and her own self image. During this weekend there is no behavioral dysregulation or aggressive behavior reported. Patient has been compliant with her medications, no significant side effects reported. Mental Status Examination Appearance: Appropriate, Disheveled Consciousness: Alert Orientation: x4 Motor Activity: Normal gait Speech: Unremarkable Language: Adequate, Other Fund of Knowledge: Inadequate Attention and Concentration: Adequate Memory: Unremarkable Mood: Angry, Oppositional Affect: Irritable, Labile Thought Process & Associations: Disorganized Thought Content: Delusional Hallucination Type: None Delusion Type: Bizarre, Paranoid Suicidal Ideation: No Suicidal Plan: No Suicidal Intention: No Homicidal Ideation: No Homicidal Plan: No Homicidal Intention: No Insight: Poor Judgment: Poor Results Vitals/IOs Vital Signs Date Time Temp Pulse Resp B/P (MAP) Pulse Ox O2 Delivery O2 Flow Rate FiO2 02/21/17 05:40 98.1 85 18 101/56 (71) 99 Assessment & Plan Problem List: (1) Eating disorder, unspecified ICD Codes: F50.9 - Eating disorder, unspecified (2) Unspecified psychosis ICD Codes: F29 - Unspecified psychosis not due to a substance or known physiological condition Assessment & Plan: Continue current psychotropic regimen. Continue encouraging compliance. Brief supportive psychotherapy and motivation provided. We will try to meet with family members in order to plan a safe discharge. (3) Borderline personality disorder ICD Codes: F60.3 - Borderline personality disorder Assessment & Plan Estimated LOS: days Justification for Cont. Inpt. Patient has a very elevated risk to decompensate at a lower level of care. Woodrow Cottrell MD Feb 21, 2017 09:54
[2017-02-21 14:58] VITALS: BP 95/53; PULSE 97; RESP 18; TEMP 99.1; O2SAT 99
[2017-02-22] MEDS: ACETAMINOPHEN 325 MG TAB PO PRN (04:00)
[2017-02-22 05:45] VITALS: BP 94/52; PULSE 69; RESP 20; TEMP 96.5; O2SAT 100
[2017-02-22] MEDS: OLANZapine 2.5 MG TAB PO SCH (08:20)
[2017-02-22] MEDS: FLUoxetine HCL 20 MG CAP PO SCH (08:20)
[2017-02-22] MEDS: HYDROCORTISONE ACETATE 25 MG SUPP RECTAL SCH (08:20)
[2017-02-22] MEDS: REMOVE OLD PATCH T-DERMAL SCH (08:21)
[2017-02-22] MEDS: NICOTINE 21 MG/24 HR PATCH T-DERMAL SCH (08:21)
[2017-02-22] MEDS: POLYETHYLENE GLYCOL 17 GM PKG PO SCH (08:22)
[2017-02-22] MEDS ORDERED: OLAN2.5T7 PO (10:03)
[2017-02-22] MEDS ORDERED: FLUO20CA12 PO (10:04)
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
== END 2017-02-22 14:00 | disposition home or self-care (01) | DRG 883 ==
LOC: NEPJ 20:07 → NEDA 02-14 21:15 → H270 02-14 22:09
PROVIDERS: ADMIT Psychiatry & Neurology Psychiatry; ATTEND Psychiatry & Neurology Psychiatry
DX: F60.3 Borderline personality disorder (principal); Z78.1 Physical restraint status; F29 Unspecified psychosis not due to a substance or known physiological condition; Z62.810 Personal history of physical and sexual abuse in childhood; M54.2 Cervicalgia; K64.4 Residual hemorrhoidal skin tags
CPT/HCPCS: 74176; 80048; 80053; 80061; 83036; 83735; 84100; 84702; 85025; 96372; J1200; J2060; J3486; Q9963

== ENCOUNTER 2017-03-12 15:45 | Emergency (ER) | payer OTHER ==
[~2017-03-12] VITALS: Ht 167.6 cm; Wt 54.0 kg
[~2017-03-12 15:45] MED LIST: FLUO20CA12 PO; OLAN2.5T7 PO
[2017-03-12 16:05] VITALS: BP 102/59; PULSE 79; RESP 16; TEMP 97.8; O2SAT 98
[2017-03-12 16:51] LABS: AUTOMATED NEUTROPHIL # 4.9 TH/MM3 (1.8-7.7); BASOPHIL % 0.3 % (0.0-2.0); EOSINOPHIL # 0.1 TH/MM3 (0-0.4); EOSINOPHIL % 0.8 % (0.0-4.0); HEMATOCRIT 35.5 % (35.0-46.0); HEMOGLOBIN 11.9 GM/DL (11.6-15.3); LYMPH % 26.7 % (9.0-44.0); MEAN CELL VOLUME 91.9 FL (80.0-100.0); MEAN CORPUSCULAR HEMOGLOBIN 30.9 PG (27.0-34.0); MEAN CORPUSCULAR HGB CONC 33.6 % (32.0-36.0); MEAN PLATELET VOLUME 8.4 FL (7.0-11.0); MONO % 7.8 % (0.0-8.0); MONOCYTE # 0.6 TH/MM3 (0-0.9); NEUT % 64.4 % (16.0-70.0); PLATELET COUNT 305 TH/MM3 (150-450); RED BLOOD COUNT 3.86 MIL/MM3 (4.00-5.30); RED CELL DISTRIBUTION WIDTH 15.8 % (11.6-17.2); WHITE BLOOD COUNT 7.6 TH/MM3 (4.0-11.0)
--- NOTE | 2017-03-12 16:52 | PD ---
HPI Chief Complaint: Psychiatric Symptoms Time Seen by Provider: 16:08 Travel History International Travel<30 days: No Contact w/Intl Traveler<30days: No Traveled to known affect area: No History of Present Illness HPI 32-year-old female that presents to the ED for evaluation of psych. Patient was Carlin acted by police after apparently family called them stating that patient was being depressed and apparently consumed rat poison. Patient completely denies this. Per patient she's been feeling very depressed and anxious secondary to being in the hospital multiple times for psychiatric evaluation. Per patient the whole idea of having to be in a psychiatric unit neck or depressed. Per patient she does not have any psychiatric or medical issues. Per patient and all started from taking a allh-aum-cqowdqn diet pill and she has been having issues because of this. Per patient she has not felt normal. Per patient she denies any suicidal or homicidal ideation to me. Per patient "you can test me if you want and you wont find anything so you know I am telling the truth. She is Anguillan-speaking only but is able to converse with me and feels comfortable my Anguillan. She declined hair tinter services. She denies any chest pain or shortness of breath. She does appear to be anxious. Symptoms appear to be worsening per patient secondary to new family members coming from [place] to her house that per patient "don't like me". PFSH Past Medical History Cancer: No Cardiovascular Problems: No Endocrine: No Genitourinary: No Headaches: No Immune Disorder: No Musculoskeletal: No Neurologic: No Reproductive: No Respiratory: No ?: Unknown LMP: 12/13/16 Social History Alcohol Use: No Tobacco Use: No Substance Use: No Allergies-Medications (Allergen,Severity, Reaction): Coded Allergies: diphenhydramine (Verified Allergy, Intermediate, Rash, 03/12/17) morphine (Verified Adverse Reaction, Intermediate, Nausea/Vomiting, ) Reported Meds & Prescriptions Reported Meds & Active Scripts Active No Active Prescriptions or Reported Medications Review of Systems Except as stated in HPI: all other systems reviewed are Neg Physical Exam Narrative GENERAL: SKIN: Warm and dry. HEAD: Atraumatic. Normocephalic. EYES: Pupils equal and round. No scleral icterus. No injection or drainage. ENT: No nasal bleeding or discharge. Mucous membranes pink and moist. Tongue is midline. No uvula deviation. NECK: Trachea midline. No JVD. CARDIOVASCULAR: Regular rate and rhythm. No murmurs, S3, S4. RESPIRATORY: No accessory muscle use. Clear to auscultation. Breath sounds equal bilaterally. GASTROINTESTINAL: Abdomen soft, non-tender, nondistended. Hepatic and splenic margins not palpable. MUSCULOSKELETAL: Extremities without clubbing, cyanosis, or edema. No obvious deformities. Full range of motion of the upper and lower extremities bilaterally. 2+ pulses bilaterally. NEUROLOGICAL: Awake and alert. No obvious cranial nerve deficits. Motor grossly within normal limits. Five out of 5 muscle strength in the arms and legs. Normal speech. PSYCHIATRIC: Anxious mood and affect; insight and judgment normal. Data Data Last Documented VS Vital Signs Date Time Temp Pulse Resp B/P (MAP) Pulse Ox O2 Delivery O2 Flow Rate FiO2 03/12/17 16:05 81 17 03/12/17 16:05 97.8 102/59 (73) 98 Orders Orders Complete Blood Count With Diff (03/12/17 16:08) Comprehensive Metabolic Panel (03/12/17 16:08) Thyroid Stimulating Hormone (03/12/17 16:08) Urinalysis - C+S If Indicated (03/12/17 16:08) Ed Urine Pregnancytest Poc (03/12/17 16:08) Psych Screen (03/12/17 16:08) Drug Screen, Random Urine (03/12/17 16:08) Alcohol (Ethanol) (03/12/17 16:08) Salicylates (Aspirin) (03/12/17 16:08) Tylenol (Acetaminophen) (03/12/17 16:08) Electrocardiogram (03/12/17 ) Coag Profile (03/12/17 16:08) Call Poison Control (03/12/17 16:08) ^ Sitter (03/12/17 16:19) Labs Laboratory Tests Test 03/12/17 16:10 03/12/17 16:20 Urine Color YELLOW Urine Turbidity HAZY Urine pH 5.5 Urine Specific [place] 1.028 Urine Protein TRACE mg/dL Urine Glucose (UA) NEG mg/dL Urine Ketones NEG mg/dL Urine Occult Blood NEG Urine Nitrite NEG Urine Bilirubin NEG Urine Urobilinogen LESS THAN 2.0 MG/DL Urine Leukocyte Esterase TRACE Urine WBC 3 /hpf Urine Squamous Epithelial Cells 2 /hpf Urine Calcium Oxalate Crystals OCC /hpf Urine Hyaline Casts 1 /lpf Urine Mucus FEW /lpf Microscopic Urinalysis Comment CULT NOT INDICATED Urine Opiates Screen NEG Urine Barbiturates Screen NEG Urine Amphetamines Screen NEG Urine Benzodiazepines Screen NEG Urine Cocaine Screen NEG Urine Cannabinoids Screen NEG White Blood Count 7.6 TH/MM3 Red Blood Count 3.86 MIL/MM3 Hemoglobin 11.9 GM/DL Hematocrit 35.5 % Mean Corpuscular Volume 91.9 FL Mean Corpuscular Hemoglobin 30.9 PG Mean Corpuscular Hemoglobin Concent 33.6 % Red Cell Distribution Width 15.8 % Platelet Count 305 TH/MM3 Mean Platelet Volume 8.4 FL Neutrophils (%) (Auto) 64.4 % Lymphocytes (%) (Auto) 26.7 % Monocytes (%) (Auto) 7.8 % Eosinophils (%) (Auto) 0.8 % Basophils (%) (Auto) 0.3 % Neutrophils # (Auto) 4.9 TH/MM3 Lymphocytes # (Auto) 2.0 TH/MM3 Monocytes # (Auto) 0.6 TH/MM3 Eosinophils # (Auto) 0.1 TH/MM3 Basophils # (Auto) 0.0 TH/MM3 CBC Comment DIFF FINAL Differential Comment Prothrombin Time 9.6 SEC Prothromb Time International Ratio 0.9 RATIO Activated Partial Thromboplast Time 23.7 SEC Blood Urea Nitrogen 17 MG/DL Creatinine 0.96 MG/DL Random Glucose 81 MG/DL Total Protein 7.5 GM/DL Albumin 3.8 GM/DL Calcium Level 8.2 MG/DL Alkaline Phosphatase 55 U/L Aspartate Amino Transf (AST/SGOT) 22 U/L Alanine Aminotransferase (ALT/SGPT) 21 U/L Total Bilirubin 0.2 MG/DL Sodium Level 143 MEQ/L Potassium Level 3.6 MEQ/L Chloride Level 109 MEQ/L Carbon Dioxide Level 27.6 MEQ/L Anion Gap 6 MEQ/L Estimat Glomerular Filtration Rate 67 ML/MIN Thyroid Stimulating Hormone 3rd Gen 1.670 uIU/ML Salicylates Level LESS THAN 1.7 MG/DL Acetaminophen Level LESS THAN 2.0 MCG/ML Ethyl Alcohol Level LESS THAN 3 MG/DL MDM Medical Decision Making Medical Screen Exam Complete: Yes Emergency Medical Condition: Yes Medical Record Reviewed: Yes Interpretation(s) EKG shows sinus rhythm with no sign of acute ischemia or arrhythmia arrhythmia attending. CBC & BMP Diagram 03/12/17 16:20 Total Protein 7.5, Albumin 3.8, Calcium Level 8.2 L, Alkaline Phosphatase 55, Aspartate Amino Transf (AST/SGOT) 22, Alanine Aminotransferase (ALT/SGPT) 21, Total Bilirubin 0.2 tox negative coags WNL Differential Diagnosis Depression versus suicidal ideation versus anxiety versus adjustment disorder versus mood disorder versus bipolar disorder versus schizophrenia versus paranoid disorder versus psychosis versus substance abuse versus alcohol abuse versus alcohol induced psychosis versus homicidality addition versus cutting versus personality disorder Narrative Course 32-year-old female that presents to the ED for evaluation of psych. Patient was properly examined and was found to have signs and symptoms consistent with psychiatric illness. Questionable intake of rat poisoning. Patient completely denies this. At this time we called poison control and they recommended supportive care and labs he labs are fine patient can be medically clear. Labs were drawn. Labs WNL. Patient was medically cleared. Okay to be seen by psych. Mental health screening was discussed with the patient. Diagnosis Primary Impression: Borderline personality disorder Scripts No Active Prescriptions or Reported Meds Abelino Hardy Mar 12, 2017 16:52
[2017-03-12 17:00] VITALS: BP 108/67; PULSE 80; RESP 16; TEMP 97.8; O2SAT 99
[2017-03-12 17:01] LABS: BILIRUBIN, URINE NEG (NEG); BLOOD, URINE NEG (NEG); CALCIUM OXALATE CRYSTALS,URINE OCC /hpf; GLUCOSE,URINE NEG (NEG); HYALINE CAST, URINE 1 /lpf (RARE); KETONE, URINE NEG (NEG); MUCUS URINE FEW /lpf (OCC); NITRITE,URINE NEG (NEG); PH, URINE 5.5 (5.0-8.5); SQUAMOUS EPITHELIAL CELL URINE 2 /hpf (0-5); URINE COLOR YELLOW (YELLW/STRAW); URINE LEUKOCYTE ESTERASE TRACE (NEG)
[2017-03-12 17:02] LABS: INTERNATIONAL NORMALIZED RATIO 0.9 RATIO; PROTHROMBIN TIME - PATIENT 9.6 SEC (9.8-11.6)
[2017-03-12 17:18] LABS: ALKALINE PHOSPHATASE 55 U/L (45-117); TOTAL BILIRUBIN ADULT 0.2 MG/DL (0.2-1.0); TOTAL PROTEIN 7.5 GM/DL (6.4-8.2)
[2017-03-12 17:21] LABS: ALBUMIN 3.8 GM/DL (3.4-5.0); ALT (GPT) 21 U/L (10-53); AST (GOT) 22 U/L (15-37); BICARBONATE 27.6 MEQ/L (21.0-32.0); BLOOD UREA NITROGEN 17 MG/DL (7-18); CALCIUM 8.2 MG/DL (8.5-10.1); CHLORIDE 109 MEQ/L (98-107); CREATININE 0.96 MG/DL (0.50-1.00); GLOMERULAR FILTRATION RATE 67 ML/MIN (>89); GLUCOSE,RANDOM 81 MG/DL (74-106); SODIUM (NA) 143 MEQ/L (136-145)
[2017-03-12 17:28] LABS: ACETAMINOPHEN LESS THAN 2.0 MCG/ML (10.0-30.0)
[2017-03-12 20:04] VITALS: BP 101/59; PULSE 100; RESP 16; TEMP 98.2; O2SAT 100
[2017-03-12] MEDS ORDERED: IBUP200T47 PO (20:54)
[2017-03-13 02:26] VITALS: BP 98/54; PULSE 68; RESP 18; TEMP 98.8; O2SAT 100
--- NOTE | 2017-03-13 11:12 | PD ---
History of Present Illness Chief Complaint: Psychiatric Symptoms Time Seen by Provider: 10:30 Travel History International Travel<30 Days: No Contact w/Intl Traveler<30days: No Known affected area: No Legal Status Legal Status: Carlin Act History of Present Illness: History of Present Illness HPI 32-year-old female with history of major depressive disorder recurrent that presents to the ED on a Carlin act initiated by law enforcement. The report alleges family called them stating that patient was depressed and apparently consumed rat poison. Patient completely denies this. Laboratory obtained to confirm that there are no abnormalities in her lab work. The patient was monitored in [facility] and she presented no behavioral concerns and no suicidality. Electronic medical record is review. The patient was admitted to our inpatient psychiatric unit in February 2017 after she reported that she had taken an overdose of gabapentin. The patient while in [facility] attempted to hang herself with a shower curtain. Patient is seen this morning in [facility]. She is alert, oriented, engaging female who communicates in Salvadorean. Her speech is clear, logical and goal-directed. There is no evidence of any psychosis, no jane or hypomania. No significant objective symptoms of depression are noted. The patient denies that she took any poisoning. She tells me that her sister lied to the police because they had been arguing. She denies that she wants to harm herself. She does talk about her unhappiness at living with her sister. She tells me that they frequently argue. The patient during her stay here in [facility] has made several requests for food including requests for coffee. She continues to remain focused on her physical appearance. PFSH Past Medical History Anxiety: Yes Cancer: No Cardiovascular Problems: No Diminished Hearing: No Endocrine: No Genitourinary: No Headaches: No Immune Disorder: No Musculoskeletal: No Neurologic: No Psychiatric: Yes Reproductive: No Respiratory: No Tetanus Vaccination: > 5 Years Influenza Vaccination: No ?: Unknown LMP: 12/13/16 : 0 Para: 0 Past Surgical History Surgical History: No Previous Surgery Psychiatric History Psychiatric History Hx Psychiatric Treatment: 1 previous hospitalization in [place]. One inpatient psychiatric hospitalization at [facility].. History of Inpatient Treatment: Yes Guns or firearms in home: No Social History Born and raised in [place]. Moved to [place] 9 years ago. Single and lives with her sister. Completed high school. Unemployed. Hx Alcohol Use: No Hx Tobacco Use: No Hx Substance Use: No Hx of Substance Use Treatment: No Family Psychiatric History Negative Allergies-Medications (Allergen,Severity, Reaction): Coded Allergies: diphenhydramine (Verified Allergy, Intermediate, Rash, 03/12/17) morphine (Verified Adverse Reaction, Intermediate, Nausea/Vomiting, ) Reported Meds & Prescriptions Reported Meds & Active Scripts Active Reported Ibuprofen 200 Mg Tab 200 Mg PO Q4-6H PRN Review of Systems Except as stated in HPI: all other systems reviewed are Neg Mental Status Examination Appearance: Appropriate (dressed in [facility] with appropriate hygiene and grooming) Consciousness: Alert Orientation: x4 Motor Activity: Normal gait Speech: Unremarkable Language: Adequate Fund of Knowledge: Adequate Attention and Concentration: Adequate Memory: Unremarkable Mood: Appropriate Affect: Appropriate Thought Process & Associations: Intact, Logical, Goal directed Thought Content: Appropriate Hallucination Type: None Delusion Type: None Suicidal Ideation: No Suicidal Plan: No Suicidal Intention: No Homicidal Ideation: No Homicidal Plan: No Homicidal Intention: No Insight: Adequate Judgment: Adequate MDM Medical Decision Making Medical Record Reviewed: Yes Assessment/Plan History of Present Illness HPI 32-year-old female with history of depressive disorder who presents to the ED under Carlin act after the family called the police and reported that she had taken some rat poisoning. The patient was evaluated in the ED with no laboratory abnormalities indicating that it was highly unlikely she did consume any rat poisoning. The patient reports that she had been arguing with her sister and her sister's partner. The patient does not present any psychosis, no jane or hypomania, there is no suicidal or homicidal ideation, intent or plan. At this time the patient is requesting to be discharge and does not present any evidence of unstable mental illness as defined under the Carlin act. She is provided psychoeducation and support. Carlin is lifted. Psychiatrically clear for discharge Orders Orders Complete Blood Count With Diff (03/12/17 16:08) Comprehensive Metabolic Panel (03/12/17 16:08) Thyroid Stimulating Hormone (03/12/17 16:08) Urinalysis - C+S If Indicated (03/12/17 16:08) Ed Urine Pregnancytest Poc (03/12/17 16:08) Psych Screen (03/12/17 16:08) Drug Screen, Random Urine (03/12/17 16:08) Alcohol (Ethanol) (03/12/17 16:08) Salicylates (Aspirin) (03/12/17 16:08) Tylenol (Acetaminophen) (03/12/17 16:08) Electrocardiogram (03/12/17 ) Coag Profile (03/12/17 16:08) Call Poison Control (03/12/17 16:08) ^ Sitter (03/12/17 16:19) Diet Regular Basic (03/13/17 Breakfast) Diet Regular Basic (03/13/17 Dinner) Results Vital Signs Date Time Temp Pulse Resp B/P (MAP) Pulse Ox O2 Delivery O2 Flow Rate FiO2 03/13/17 02:26 98.8 68 18 98/54 (69) 100 Room Air 03/12/17 20:04 98.2 100 16 101/59 (73) 100 Room Air 03/12/17 17:00 97.8 80 16 108/67 (81) 99 03/12/17 16:05 81 17 03/12/17 16:05 97.8 79 16 102/59 (73) 98 Laboratory Tests Test 03/12/17 16:10 03/12/17 16:20 Urine Color YELLOW Urine Turbidity HAZY Urine pH 5.5 Urine Specific [place] 1.028 Urine Protein TRACE Urine Glucose (UA) NEG Urine Ketones NEG Urine Occult Blood NEG Urine Nitrite NEG Urine Bilirubin NEG Urine Urobilinogen LESS THAN 2.0 Urine Leukocyte Esterase TRACE Urine WBC 3 Urine Squamous Epithelial Cells 2 Urine Calcium Oxalate Crystals OCC Urine Hyaline Casts 1 Urine Mucus FEW Microscopic Urinalysis Comment CULT NOT INDICATED Urine Opiates Screen NEG Urine Barbiturates Screen NEG Urine Amphetamines Screen NEG Urine Benzodiazepines Screen NEG Urine Cocaine Screen NEG Urine Cannabinoids Screen NEG White Blood Count 7.6 Red Blood Count 3.86 Hemoglobin 11.9 Hematocrit 35.5 Mean Corpuscular Volume 91.9 Mean Corpuscular Hemoglobin 30.9 Mean Corpuscular Hemoglobin Concent 33.6 Red Cell Distribution Width 15.8 Platelet Count 305 Mean Platelet Volume 8.4 Neutrophils (%) (Auto) 64.4 Lymphocytes (%) (Auto) 26.7 Monocytes (%) (Auto) 7.8 Eosinophils (%) (Auto) 0.8 Basophils (%) (Auto) 0.3 Neutrophils # (Auto) 4.9 Lymphocytes # (Auto) 2.0 Monocytes # (Auto) 0.6 Eosinophils # (Auto) 0.1 Basophils # (Auto) 0.0 CBC Comment DIFF FINAL Differential Comment Prothrombin Time 9.6 Prothromb Time International Ratio 0.9 Activated Partial Thromboplast Time 23.7 Blood Urea Nitrogen 17 Creatinine 0.96 Random Glucose 81 Total Protein 7.5 Albumin 3.8 Calcium Level 8.2 Alkaline Phosphatase 55 Aspartate Amino Transf (AST/SGOT) 22 Alanine Aminotransferase (ALT/SGPT) 21 Total Bilirubin 0.2 Sodium Level 143 Potassium Level 3.6 Chloride Level 109 Carbon Dioxide Level 27.6 Anion Gap 6 Estimat Glomerular Filtration Rate 67 Thyroid Stimulating Hormone 3rd Gen 1.670 Salicylates Level LESS THAN 1.7 Acetaminophen Level LESS THAN 2.0 Ethyl Alcohol Level LESS THAN 3 Diagnosis Primary Impression: Adjustment disorder Psychiatrically Cleared: Yes Med/ Other Pt Specific Info: No Change to Meds Disposition: 01 DISCHARGE HOME Condition: Stable Problem Qualifiers Primary Impression: Adjustment disorder Qualified Codes: F43.20 - Adjustment disorder, unspecified Raisa Chang Mar 13, 2017 11:12
--- NOTE | 2017-03-13 12:08 | EKG ---
Date Performed: 03/12/2017 Time Performed: 16:10:08 PTAGE: 32 years EKG: Sinus rhythm NORMAL ECG INTERPRETATION BASED ON A DEFAULT AGE OF 39 YEARS NO PREVIOUS TRACING DOCTOR: Bryan Hoyos Interpretating Date/Time 03/13/2017 12:05:40
--- NOTE | 2017-03-13 12:20 | PD ---
Physical Exam Date Seen by Provider: Mar 13, 2017 Time Seen by Provider: 12:19 Narrative 32 -year-old female was brought to the emergency Department under Carlin act. She has since been evaluated by the psychiatric nurse practitioner, Raisa, and Carlin act has been lifted. The patient like to go home and feels comfortable going home. Data Data Last Documented VS Vital Signs Date Time Temp Pulse Resp B/P (MAP) Pulse Ox O2 Delivery O2 Flow Rate FiO2 03/13/17 02:26 98.8 68 18 98/54 (69) 100 Room Air Orders Orders Complete Blood Count With Diff (03/12/17 16:08) Comprehensive Metabolic Panel (03/12/17 16:08) Thyroid Stimulating Hormone (03/12/17 16:08) Urinalysis - C+S If Indicated (03/12/17 16:08) Ed Urine Pregnancytest Poc (03/12/17 16:08) Psych Screen (03/12/17 16:08) Drug Screen, Random Urine (03/12/17 16:08) Alcohol (Ethanol) (03/12/17 16:08) Salicylates (Aspirin) (03/12/17 16:08) Tylenol (Acetaminophen) (03/12/17 16:08) Electrocardiogram (03/12/17 ) Coag Profile (03/12/17 16:08) Call Poison Control (03/12/17 16:08) ^ Sitter (03/12/17 16:19) Diet Regular Basic (03/13/17 Breakfast) Diet Regular Basic (03/13/17 Dinner) Labs Laboratory Tests Test 03/12/17 16:10 03/12/17 16:20 Urine Color YELLOW Urine Turbidity HAZY Urine pH 5.5 Urine Specific [place] 1.028 Urine Protein TRACE mg/dL Urine Glucose (UA) NEG mg/dL Urine Ketones NEG mg/dL Urine Occult Blood NEG Urine Nitrite NEG Urine Bilirubin NEG Urine Urobilinogen LESS THAN 2.0 MG/DL Urine Leukocyte Esterase TRACE Urine WBC 3 /hpf Urine Squamous Epithelial Cells 2 /hpf Urine Calcium Oxalate Crystals OCC /hpf Urine Hyaline Casts 1 /lpf Urine Mucus FEW /lpf Microscopic Urinalysis Comment CULT NOT INDICATED Urine Opiates Screen NEG Urine Barbiturates Screen NEG Urine Amphetamines Screen NEG Urine Benzodiazepines Screen NEG Urine Cocaine Screen NEG Urine Cannabinoids Screen NEG White Blood Count 7.6 TH/MM3 Red Blood Count 3.86 MIL/MM3 Hemoglobin 11.9 GM/DL Hematocrit 35.5 % Mean Corpuscular Volume 91.9 FL Mean Corpuscular Hemoglobin 30.9 PG Mean Corpuscular Hemoglobin Concent 33.6 % Red Cell Distribution Width 15.8 % Platelet Count 305 TH/MM3 Mean Platelet Volume 8.4 FL Neutrophils (%) (Auto) 64.4 % Lymphocytes (%) (Auto) 26.7 % Monocytes (%) (Auto) 7.8 % Eosinophils (%) (Auto) 0.8 % Basophils (%) (Auto) 0.3 % Neutrophils # (Auto) 4.9 TH/MM3 Lymphocytes # (Auto) 2.0 TH/MM3 Monocytes # (Auto) 0.6 TH/MM3 Eosinophils # (Auto) 0.1 TH/MM3 Basophils # (Auto) 0.0 TH/MM3 CBC Comment DIFF FINAL Differential Comment Prothrombin Time 9.6 SEC Prothromb Time International Ratio 0.9 RATIO Activated Partial Thromboplast Time 23.7 SEC Blood Urea Nitrogen 17 MG/DL Creatinine 0.96 MG/DL Random Glucose 81 MG/DL Total Protein 7.5 GM/DL Albumin 3.8 GM/DL Calcium Level 8.2 MG/DL Alkaline Phosphatase 55 U/L Aspartate Amino Transf (AST/SGOT) 22 U/L Alanine Aminotransferase (ALT/SGPT) 21 U/L Total Bilirubin 0.2 MG/DL Sodium Level 143 MEQ/L Potassium Level 3.6 MEQ/L Chloride Level 109 MEQ/L Carbon Dioxide Level 27.6 MEQ/L Anion Gap 6 MEQ/L Estimat Glomerular Filtration Rate 67 ML/MIN Thyroid Stimulating Hormone 3rd Gen 1.670 uIU/ML Salicylates Level LESS THAN 1.7 MG/DL Acetaminophen Level LESS THAN 2.0 MCG/ML Ethyl Alcohol Level LESS THAN 3 MG/DL MDM Supervised Visit with YESI: No Narrative Course 32-year-old female presents to the emergency Department under Carlin act. She was evaluated by the psychiatric nurse practitioner Carlin act was lifted. The patient was discharged in stable condition with instructions, including return instructions and follow up instructions. Diagnosis Primary Impression: Borderline personality disorder Patient Instructions: Borderline Personality Disorder (DC), General Instructions Additional Instruction: Follow-up with psychiatrist. Return to the emergency department for any acute worsening of symptoms. Med/Other Pt SpecificInfo: No Change to Meds Disposition: 01 DISCHARGE HOME Condition: Stable Gely Pyle Mar 13, 2017 12:20
== END 2017-03-13 14:20 | disposition home or self-care (01) ==
LOC: NEDAMB 15:45 → NEPJ 03-13 14:20
DX: F60.3 Borderline personality disorder (principal); F43.22 Adjustment disorder with anxiety; F33.9 Major depressive disorder, recurrent, unspecified
CPT/HCPCS: 80053; 80307; 81001; 84443; 84703; 85025; 85610; 85730; 93005; 99284